=== PATIENT | male | born 1960 | race Caucasian/White ===

== ENCOUNTER 2018-05-17 20:41 | Inpatient (IN) | payer MEDICAID ==
--- NOTE | 2018-05-17 21:05 | ED Physician Chart ---
ED Chief Complaint/HPI - Patient Information Date Seen:: 05/17/18 Time Seen:: 20:59 Chief Complaint:: bleeding at the trach site History of Present Illness:: 57 yr old male who comes from assisted with trach with some bleeding issuesat the trach sitwe there was a clot at the trach site and when the assisted suctioned it it started to bleed more and then it stopped later on his own pt is coughing with yellowish phlegm and trach hole small with dry blood pulse ox 99 percent. Allergies:: Allergies Allergy/AdvReac Type Severity Reaction Status Date / Time No Known Allergies Allergy Verified 05/17/18 20:51 ED Review of Systems - Review of Systems General/Constitutional: No fever Skin: No skin lesions Head: No headache Eyes: No loss of vision ENT: No earache Neck: No neck pain Cardio Vascular: No chest pain Pulmonary: No SOB GI: No nausea, No vomiting G/U: No dysuria ED Past Medical History - Past Medical History Past Medical History: HTN, DM, Asthma/COPD, Thyroid disorder (hypokalcemia tonsillar laryngeal ca liver dz etoh former smoker ), Other (laryngeal ca s/p trach liver dz etoh hypokalemia ) Social History: Smoker Family Medical History - Family Member Mother History Unknown: Yes ED Physical Exam - Physical Examination General/Constitutional: Well-developed, well-nourished Head: Atraumatic Eyes: Lids, conjuctiva normal (trach hole with dry blood) ED Septic Shock - . Is Septic Shock (SBP<90, OR Lactate>4 mmol\L) present?: No ED Reassessment (Disposition) - Diagnosis Diagnosis:: larngeal ca hx with trach hole with fresh bleeding now controlled admit for observation of bleeding trach mask humidified ordered labs cxr - Patient Disposition Discharge/Transfer:: Acute Care w/in this hosp Condition at Disposition:: Stable
[2018-05-17] MEDS ORDERED: Morphine Sulfate 2 mg/mL 1mL Syr IV STA (21:12)
[2018-05-17] MEDS ORDERED: Sodium Chloride 0.9% 250 ML IV ONE (21:14)
[2018-05-17] MEDS ORDERED: Morphine Sulfate 2 mg/mL 1mL Syr ONE (21:22)
[2018-05-17 21:25] LABS: % BASOPHILS 0.7 % (0.0-2.0); % EOSINOPHILS 2.3 % (0.0-5.0); % MONOCYTES 9.2 % (2.0-10.0); % NEUTROPHILS 51.8 % (40.0-80.0); EOSINOPHILE ABSOLUTE 0.1 Th/cmm (0.1-0.4); HEMATOCRIT 37.4 % (41.0-60); HEMOGLOBIN 12.4 gm/dL (12-16); LYMPHOCYTE ABSOLUTE 2.1 Th/cmm (1.5-3.0); MEAN CELL VOLUME 91.2 fl (80-99); MEAN CORPUSCULAR HEMOGLOBIN 30.3 pg (26.0-30.0); MEAN CORPUSCULAR HGB CONC 33.2 pg (28.0-36.0); MEAN PLATELET VOLUME 8.9 fl; MONOCYTE ABSOLUTE 0.5 Th/cmm (0.3-1.0); NEUTROPHILE ABSOLUTE 3.2 Th/cmm (1.8-8.0); PLATELET COUNT 186 Th/cmm (150-400); RED CELL DISTRIBUTION WIDTH 14.1 % (11.5-20.0); WHITE BLOOD COUNT 5.9 Th/cmm (4.8-10.8)
[2018-05-17 21:28] LABS: URINE SOURCE CLEAN C
[2018-05-17 21:33] LABS: URINE BILIRUBIN NEGATIVE (NEGATIVE); URINE BLOOD NEGATIVE (NEGATIVE); URINE GLUCOSE (UA) NEGATIVE (NEGATIVE); URINE KETONE NEGATIVE (NEGATIVE); URINE LEUKOCYTE ESTERASE MODERATE (NEGATIVE); URINE NITRATE NEGATIVE (NEGATIVE); URINE PH 6.5 (4.6 - 8.0); URINE PROTEIN NEGATIVE (NEGATIVE); URINE UROBILINOGEN 0.2 E.U./dL (0.2 - 1.0)
[2018-05-17 21:34] LABS: URINE CLARITY HAZY (CLEAR); URINE COLOR YELLOW; URINE MICROSCOPIC INDICATED? YES
[2018-05-17 21:35] LABS: URINE RBC 0-2 /hpf (0-5)
[2018-05-17 21:36] LABS: URINE BACTERIA OCCASIONAL /hpf (NONE SEEN); URINE EPITHELIAL CELLS FEW /lpf (FEW)
[2018-05-17 21:44] LABS: ALB/GLOB RATIO 1.3 (1.0-1.8); ALBUMIN 4.6 gm/dL (4.2-5.5); ALKALINE PHOSPHATASE 90 U/L (34-104); BILIRUBIN,TOTAL 0.5 mg/dL (0.3-1.0); BUN - UREA NITROGEN 17 mg/dL (7-25); CALCIUM SERUM 9.7 mg/dL (8.6-10.3); CARBON DIOXIDE 27.8 mEq/L (21.0-31.0); CHLORIDE 101 mEq/L (98-107); GFR AFRICAN-AMERICAN > 60.0 ml/min (>90); GFR NON AFRICAN-AMERICAN > 60.0 ml/min; GLUCOSE 103 mg/dL (70-105); POTASSIUM SERUM 3.8 mEq/L (3.5-5.1); SGOT 22 U/L (13-39); SGPT/ALT 21 U/L (7-52); SODIUM SERUM 140 mEq/L (136-145); TOTAL PROTEIN,SERUM 8.2 gm/dL (6.0-8.3)
[2018-05-17] MEDS ORDERED: cefTRIAXone 2 GM in Sodium Chloride 0.9% 100 ML IV ONE (21:53)
[2018-05-17 23:41] LABS: INR 0.94 (0.5-1.4); PROTHROMBIN TIME (TEST) 9.5 SECONDS (9.5-11.5)
[2018-05-18 00:26] VITALS: BP 149/68
[2018-05-18] MEDS: Albuterol/Ipratropium Neb 3 ML AERS HHN SCH ×5 (01:22→18:45)
--- NOTE | 2018-05-18 08:33 | Diagnostic Imaging Report ---
Portable chest x-ray HISTORY: Shortness of breath There is a poor inspiration. Heart size difficult to assess. No acute focal pulmonary processes. No hilar or mediastinal abnormalities. IMPRESSION: 1. No acute abnormalities
[2018-05-18] MEDS ORDERED: Non-Formulary Item 1 EA (Levothyroxine Sodium [Levothyroxine Sodium] 150 MCG) PO SCH (09:30)
[2018-05-18] MEDS ORDERED: Influenza Vaccine (5 yr & older) 0.5 ml Syr IM ONE (10:00)
[2018-05-18 10:19] LABS: % BASOPHILS 0.7 % (0.0-2.0); % EOSINOPHILS 1.7 % (0.0-5.0); % LYMPHOCYTES 11.4 % (20.0-50.0); % MONOCYTES 9.6 % (2.0-10.0); % NEUTROPHILS 76.6 % (40.0-80.0); EOSINOPHILE ABSOLUTE 0.1 Th/cmm (0.1-0.4); HEMATOCRIT 33.6 % (41.0-60); HEMOGLOBIN 11.2 gm/dL (12-16); LYMPHOCYTE ABSOLUTE 0.7 Th/cmm (1.5-3.0); MEAN CELL VOLUME 91.4 fl (80-99); MEAN CORPUSCULAR HEMOGLOBIN 30.4 pg (26.0-30.0); MEAN CORPUSCULAR HGB CONC 33.2 pg (28.0-36.0); MEAN PLATELET VOLUME 9.3 fl; MONOCYTE ABSOLUTE 0.6 Th/cmm (0.3-1.0); NEUTROPHILE ABSOLUTE 4.5 Th/cmm (1.8-8.0); PLATELET COUNT 162 Th/cmm (150-400); RED BLOOD COUNT 3.68 Mil/cmm (4.30-5.70); RED CELL DISTRIBUTION WIDTH 14.1 % (11.5-20.0); WHITE BLOOD COUNT 5.9 Th/cmm (4.8-10.8)
[2018-05-18] MEDS: Hydrocodone/APAP 5mg/325mg Tab PO PRN ×2 (10:30→23:25)
[2018-05-18] MEDS: NIFEdipine 30 mg ER Tab PO SCH (10:31)
--- NOTE | 2018-05-18 10:46 | History & Physical ---
ADMIT DATE: 05/18/2018 PATIENT IDENTIFICATION: A 57-year-old male. CHIEF COMPLAINT: Bleeding from the stoma site. HISTORY OF PRESENT ILLNESS: A 57-year-old male who I know him from his last admission at [facility], resides at [facility], brought in to the Emergency Room for evaluation of bleeding from the stoma site. The patient was evaluated and advised to be admitted after the patient was having some respiratory distress. The patient currently is alert, awake and does not have any active bleeding. He does have stoma, but there is no tracheostomy. The patient has a diagnosis of cancer of his larynx and has a tracheostomy and get it is clear from [facility]. PAST MEDICAL HISTORY: Remarkable for diabetes, hypertension, history of laryngeal carcinoma. MEDICATIONS AT HOME: Medications at the time of transfer, the patient is taking multiple medications, which include Tylenol, albuterol, atrovent nebulizer treatment, calcitriol, Colace, guaifenesin, [place], levothyroxine, melatonin, nifedipine, and propylene glycol. ALLERGIES: The patient is not allergic to medications. SOCIAL HISTORY: The patient resides in a penitentiary. No history of smoking cigarette, alcohol, or drug use. FAMILY MEDICAL HISTORY: Remarkable for hypotension and diabetes. REVIEW OF SYSTEMS: The patient currently denies any headache, blurred vision, double vision, dysphagia, odynophagia, runny nose, stuffy nose, fever, chills, cough, chest pain, abdominal pain, nausea, vomiting, diarrhea, dysuria, hematuria, hematochezia, melena. No seizure or syncopal episode. PHYSICAL EXAMINATION: GENERAL: The patient is alert, awake, oriented, lying in the bed without any acute distress. VITAL SIGNS: Temperature 98, pulse is 74, respiratory rate is 18, blood pressure 136/80. SKIN: Warm to touch. Adequate skin turgor. No petechia, no purpura. HEENT: Normocephalic, atraumatic. Extraocular muscles are intact. Tongue was pink and coated. Poor dentition noted. NECK: Supple. Tracheostomy noted with active bleeding noted. No lymphadenopathy. HEART: Both heart sounds are regular. CHEST AND LUNGS: Equal in expansion. Expiratory wheezing noted. ABDOMEN: Soft. No guarding, no rigidity. Bowel sounds are present. No palpable mass. EXTREMITIES: No edema, no cyanosis, no calf tenderness noted. NEUROLOGIC: Nonfocal. AVAILABLE DIAGNOSTIC DATA: White count of 5.9, hemoglobin 12.4, platelet count of 186. PT, PTT are normal. Creatinine normal. Urine is unremarkable as well. CLINICAL IMPRESSION: 1. Status post bleeding from the stoma site, now has felt normal hemoglobin and hematocrit. 2. History of laryngeal carcinoma, status post tracheostomy. 3. Hypertension. 4. Hypothyroidism. 5. Degenerative joint disease. 6. Pain at the cancer site. PLAN: The patient is admitted at this time by me to the hospital. The patient was given oxygen, nebulizer treatment. Pulmonary consult is requested. Although, the home meds are reconciled. The patient is cleared by the Pulmonary. The patient will be discharged back to facility. I will get the followup CBC today. Symptoms management and pain management will be prescribed. Symptoms management and medication management given. JOB# [id number]
--- NOTE | 2018-05-18 15:35 | History & Physical ---
ADMIT DATE: 05/18/2018 PULMONARY/CRITICAL CARE CONSULTATION REASON FOR CONSULTATION: Helpless and shortness of breath with possibly hemoptysis or bleeding from the site of the stoma. CONSULT NOTE: This is a 57-year-old gentleman who is known to me from before. He was here one time before couple of months back. The patient has had history of very heavy smoking, quit smoking about a year ago when they were found to have a throat cancer ____ done. He is living in a local convalescent home. For the last couple of days, he has some off and on bloody colored secretions from coughing. Subsequently, got more shortness of breath, hence the patient was admitted for further care and necessary treatment. Denies any chest pain. Denied of any wheezing except for shortness of breath. Denied of any swelling of the legs, PND, orthopnea, etc. Denies of any sinus congestion and denies of swelling of the legs. PAST MEDICAL HISTORY: History of diabetes mellitus type 2, hypertension, and history of laryngeal carcinoma, probably a clean those stage is not clear. MEDICATIONS: Multiple including albuterol, Atrovent ground color for some [place], levothyroxine, melatonin, and nifedipine. ALLERGIC HISTORY: Nil. PHYSICAL EXAMINATION: GENERAL: This is a middle-aged looking gentleman, awake, alert, and oriented, not in acute distress. VITAL SIGNS: The patient's recorded vitals: Temperature is 97.2, blood pressure 125/71. HEENT: Head is essentially unremarkable. Pupils appear to be equal and reacting to light. Conjunctivae are slightly pallor. Oral cavity, small oropharyngeal opening with fair to poor dental hygiene, otherwise unremarkable. NECK: Stoma shows slight dryness affect appears to be fairly open and no palpable nodes around the stoma could be appreciated. CHEST: Shows occasional rhonchi with diminished air entry. HEART: Regular. ABDOMEN: Soft, nontender. EXTREMITIES: Shows no peripheral edema. LABORATORY DATA: The patient's routine labs white count is 75.9 on two occasions and hemoglobin is around 1-12 . Electrolytes are okay with the patient's creatinine 1.0 and the patient's glucose is 103 and urine appears to be having some leukocyte esterase positive. Chest x-ray shows increased bronchovascular marking, otherwise unremarkable. IMPRESSION: 1. The patient has hemoptysis, most likely secondary to tracheobronchitis. 2. Possibility of local recurrence cannot be totally rule out cancer. 3. History of diabetes mellitus. 4. Hypertension. PLAN: We will get a culture. I agree with empirical antibiotic. We will give limited dose of steroid inhaler and we will get a CT of the neck and the chest and if is not remarkable can be discharged and some of this can be followed up as an outpatient with a laryngectomy was done and go from there. JOB# [id number]
[2018-05-18] MEDS: Peg-400/Propylene Ophth Soln 5 mL Bottle EACH EYE SCH ×2 (15:59→20:32)
[2018-05-18] MEDS: guaiFENesin 200 MG/10 ML UDC PO SCH (16:04)
[2018-05-18] MEDS: Budesonide 0.5 Mg/2 mL Ud HHN SCH (18:45)
[2018-05-18] MEDS: cefTRIAXone 1 GM in Sodium Chloride 0.9% 50 ML IV SCH (20:32)
[2018-05-18] MEDS ORDERED: Non-Formulary Item 1 EA (Melatonin [Melatonin] 3 MG) PO SCH (21:00)
[2018-05-19 05:37] LABS: % BASOPHILS 0.7 % (0.0-2.0); % EOSINOPHILS 2.7 % (0.0-5.0); % NEUTROPHILS 60.6 % (40.0-80.0); EOSINOPHILE ABSOLUTE 0.1 Th/cmm (0.1-0.4); HEMOGLOBIN 10.8 gm/dL (12-16); LYMPHOCYTE ABSOLUTE 1.2 Th/cmm (1.5-3.0); MEAN CELL VOLUME 90.4 fl (80-99); MEAN CORPUSCULAR HEMOGLOBIN 30.3 pg (26.0-30.0); MEAN CORPUSCULAR HGB CONC 33.6 pg (28.0-36.0); MEAN PLATELET VOLUME 8.9 fl; MONOCYTE ABSOLUTE 0.7 Th/cmm (0.3-1.0); NEUTROPHILE ABSOLUTE 3.1 Th/cmm (1.8-8.0); PLATELET COUNT 161 Th/cmm (150-400); RED BLOOD COUNT 3.54 Mil/cmm (4.30-5.70); RED CELL DISTRIBUTION WIDTH 13.8 % (11.5-20.0); WHITE BLOOD COUNT 5.1 Th/cmm (4.8-10.8)
[2018-05-19 05:51] LABS: ALB/GLOB RATIO 1.3 (1.0-1.8); ALBUMIN 3.8 gm/dL (4.2-5.5); ALKALINE PHOSPHATASE 73 U/L (34-104); ANION GAP 13.2 (7.0-16.0); BILIRUBIN,DIRECT 0.04 mg/dL (0.0-0.2); BILIRUBIN,TOTAL 0.3 mg/dL (0.3-1.0); BUN - UREA NITROGEN 21 mg/dL (7-25); CALCIUM SERUM 8.7 mg/dL (8.6-10.3); CARBON DIOXIDE 26.1 mEq/L (21.0-31.0); CHLORIDE 104 mEq/L (98-107); GFR AFRICAN-AMERICAN > 60.0 ml/min (>90); GFR NON AFRICAN-AMERICAN > 60.0 ml/min; GLUCOSE 100 mg/dL (70-105); POTASSIUM SERUM 4.3 mEq/L (3.5-5.1); SGOT 15 U/L (13-39); SGPT/ALT 15 U/L (7-52); SODIUM SERUM 139 mEq/L (136-145); TOTAL PROTEIN,SERUM 6.8 gm/dL (6.0-8.3)
[2018-05-19] MEDS: Budesonide 0.5 Mg/2 mL Ud HHN SCH ×2 (07:26→19:27)
[2018-05-19] MEDS: Albuterol/Ipratropium Neb 3 ML AERS HHN SCH ×4 (07:37→19:28)
[2018-05-19] MEDS: guaiFENesin 200 MG/10 ML UDC PO SCH ×2 (08:20→16:34)
[2018-05-19] MEDS: Peg-400/Propylene Ophth Soln 5 mL Bottle EACH EYE SCH ×3 (08:21→20:25)
[2018-05-19] MEDS: NIFEdipine 30 mg ER Tab PO SCH (08:21)
[2018-05-19 08:59] LABS: pH 7.43 (7.35-7.45)
[2018-05-19 09:00] LABS: ALLEN TEST pos
--- NOTE | 2018-05-19 09:08 | Diagnostic Imaging Report ---
CT soft tissue neck without IV contrast History: Hemoptysis Comparison: None Technique: Axial images were obtained from the skull base to the upper thorax without IV contrast. Reconstructions were made. Total DLP 250 CTD I 9.1 Findings: Exam is limited due to lack of IV contrast. The globes and intraconal compartments are intact. The bilateral parotid glands are intact. Inflammatory changes are seen along the left parotid space extending inferiorly throughout the left submandibular space and extending to the right submandibular space. There are multiple prominent lymph nodes seen along the left, submandibular region. The largest of these is anterior without to what is probably the [place] left submandibular gland measuring 2.1 x 1.3 cm. The right submandibular gland is not visualized and may have been removed. There is a large fat density area/mass throughout the right parapharyngeal space extending from the oropharyngeal region and inferiorly to the upper mediastinum. This measures 10.5 cm greatest craniocaudal x 4.5 cm greatest transverse dimension. There is also partial removal involving the right and isthmus of the thyroid gland and parts of the left lobe. There is associated marked compression upon the airway and the proximal esophagus from the patient's fat density mass. A tracheostomy tube is seen inferior to the mass. No prevertebral soft tissue swelling. Mild degenerative changes of the spine are noted. There is mild atherosclerosis. There is mucosal thickening of the paranasal sinuses. IMPRESSION: Large fat density mass throughout the right parapharyngeal region extending from the oropharyngeal region superiorly to the upper mediastinal border. This is probably of postsurgical sequela. An intrinsic mass lesion such as a lipoma or low-grade liposarcoma is considered less likely. Please correlate with clinical and surgical history and old exams. There is associated compression of the proximal esophagus and trachea. A tracheostomy is noted distally. No tracheostomy tube identified. Again clinical correlation is needed. Heterogeneous inflammatory changes surrounding the left parotid gland extending inferior throughout the submandibular glands. Prominent lymph nodes of the submandibular regions are noted left greater than right. The right submandibular gland may also have been removed. Findings may have been sequela of previous neoplastic process/head and neck malignancy. Clinical correlation is recommended Evidence of removal of the majority of the thyroid gland with residual small amount of the left lobe of the thyroid gland. Atherosclerotic vascular disease.
--- NOTE | 2018-05-19 09:45 | Diagnostic Imaging Report ---
CT Chest without IV contrast HISTORY: Hemoptysis COMPARISON: CT chest on 06/14/2017. Study was also compared to day soft tissue neck CT Technique: Axial images were obtained from the base of the neck to the upper abdomen without IV contrast. Reconstructions were made. Total DLP 229, CTD I 6 Findings: Evaluation of the mediastinum is limited due to lack of IV contrast. Postsurgical be changes of the base of the neck is noted. There is evidence of prior tracheostomy. No evidence of mediastinal lymphadenopathy. The Ascending aorta measures up to 3.6 cm. Moderate atherosclerosis is noted. Heart size normal. No pericardial effusion identified. Evaluation of lung alexander demonstrates chronic lung changes and COPD changes. Hypoventilatory and atelectatic changes of the lungs are also noted. There is a new right apical nodule along the right medial right pleural border measuring 1.2 x 1.1 cm. There is mild elevation of the left hemidiaphragm. The previous few nodular infiltrates of the left lower lobe on prior exam are not seen on this examination. The upper abdomen demonstrates diffuse pancreatic parenchymal calcification likely due to chronic pancreatitis. Distended stomach is seen with air-fluid level. Again seen is there is chronic moderate compression deformity of T8. Degenerative changes spine are noted. There is stable 1.5 cm sclerotic lesion of T5. IMPRESSION: 1.2 x 1.1 cm New right apical nodule along the medial right pleural border. Neoplastic process cannot be excluded. Recommend further assessment with PET/CT examination The prior left basal infiltrate seen on prior CT examination on 06/14/2017 has resolved. Hypoventilatory and atelectatic lung changes with no focal consolidation identified. COPD changes. Moderate atherosclerosis. Stable 1.1 cm sclerotic lesion of T5. This may represent a bone island. Recommend continue follow up surveillance.
[2018-05-19] MEDS: Hydrocodone/APAP 5mg/325mg Tab PO PRN ×2 (14:33→20:25)
[2018-05-19] MEDS: cefTRIAXone 1 GM in Sodium Chloride 0.9% 50 ML IV SCH (20:26)
--- NOTE | 2018-05-19 23:19 | Progress Notes ---
DATE: IDENTIFICATION: A 57-year-old male. SUBJECTIVE: The patient seen and examined. The patient is lying in the bed. The patient had earlier respiratory distress. The patient is feeling much better now. The CT chest and soft tissue neck were done as well. Report reviewed with the patient. I did discuss with the patient that the patient should see the ENT surgeon as an outpatient since ENT service is not available. The patient currently agree with recommendations. The patient currently denies any chest pain or increasing shortness of breath. PHYSICAL EXAMINATION: VITAL SIGNS: Temperature 98.2, pulse 72, respiratory rate 18, and blood pressure 137/70. HEENT: No facial asymmetry. NECK: Supple, no JVD. Tracheostomy stoma noted with no active bleeding. HEART: Regular. LUNGS: Clear to auscultate. ABDOMEN: Soft. EXTREMITIES: No edema. LABORATORY DATA: MRSA nares positive. Blood cultures are negative. CLINICAL IMPRESSION: 1. Bleeding stoma. No further episode. 2. Status post tracheostomy with intact stoma for laryngeal cancer. 3. Respiratory distress, resolved. 4. Hypertension. 5. Hypothyroidism. 6. Pain at the catheter site, improved. PLAN: Based on current conditions and my evaluation, the patient can be discharged to lower level of care with current treatment plan as the patient receiving and have outpatient followup with [facility] ENT Department for his abnormal CT report and further evaluation. JOB# [id number]
[2018-05-20] MEDS: Budesonide 0.5 Mg/2 mL Ud HHN SCH (06:52)
[2018-05-20] MEDS: Albuterol/Ipratropium Neb 3 ML AERS HHN SCH ×2 (06:53→11:26)
[2018-05-20] MEDS: guaiFENesin 200 MG/10 ML UDC PO SCH (08:16)
[2018-05-20] MEDS: Peg-400/Propylene Ophth Soln 5 mL Bottle EACH EYE SCH (08:17)
[2018-05-20] MEDS: NIFEdipine 30 mg ER Tab PO SCH (08:22)
--- NOTE | 2018-05-20 19:58 | Discharge Summary ---
DATE OF DISCHARGE: 05/20/2018 PRINCIPAL DIAGNOSES: 1. Tracheostomy stoma site bleeding, most likely secondary to tracheobronchitis with possibilities of recurrence of tumor, workup to be done as an outpatient. 2. Hypertension. 3. Hypothyroidism. 4. Coronary artery disease. 5. Chronic obstructive pulmonary disease. 6. Degenerative joint disease. 7. Status post resection of laryngeal carcinoma with open tracheostomy stoma. BRIEF STATEMENT FOR THE REASON FOR ADMISSION: A 57-year-old male presented to [facility] after the patient was having bleeding from the tracheostomy stoma site. The patient was evaluated and subsequently admitted to the hospital for further treatment. Please refer to my H and P for further information. HOSPITAL COURSE: The patient was admitted to telemetry unit. Oxygen nebulizer treatment given. Empirical IV antibiotic was started. Pulmonary consultation was also requested. The patient was seen by grades [address] chest and soft tissue neck was also done. CT chest was remarkable for COPD with atherosclerosis. No lymphadenopathy was noted. CT scan of the soft tissue did reveal the patient had a heterogenous inflammatory changes surrounding the left parotid gland extending inferior throughout the submandibular gland also noted. There is associated compression of the proximal esophagus and trachea also noted. There is a large fatty density mass throughout the right pharyngeal region extending from the oropharyngeal region superior to the upper mediastinal border was noted as well. It was recommended that to correlate with clinical and surgical history. The patient did not have any further bleeding after the patient was placed on inhaled corticosteroid and antibiotic. The patient has continued to remain hemodynamically stable with saturation of about 95%. Since the patient remained stable, no active bleeding. I did have a discussion with the patient about follow up with I for his abnormal CT scan of the neck, considering ENT service is not available and there is no need to transfer this patient on an emergency basis. The patient has fully understood about follow up with I. Today, the patient is [facility] to [facility] with antibiotic, Zithromax to be continued for 1 week, associated with inhaled corticosteroid and other medication. The patient will be seen by his manager primary in [facility] as scheduled. JOB# [id number]
--- NOTE | 2018-05-21 03:35 | Progress Notes ---
DATE: 05/20/2018 IDENTIFICATION: A 57-year-old male. SUBJECTIVE: The patient is seen and examined. No new complaints. PHYSICAL EXAMINATION: VITAL SIGNS: Temperature 97.7, pulse is 90, respiratory rate 18, blood pressure 106/76. HEENT: No facial asymmetry. NECK: Supple. Tracheostomy stoma without any active bleeding noted. HEART: Regular. LUNGS: Expiratory wheezing. ABDOMEN: Soft. No guarding, no rigidity. Bowel sounds present. No palpable mass. EXTREMITIES: No edema. NEUROLOGIC: Nonfocal. MEDICATION: Admission record is reviewed. CLINICAL IMPRESSION: 1. Hemoptysis, resolved, most likely secondary to tracheobronchitis with possible recurrence of tumor workup to be done as an outpatient for the tumor. 2. Hypertension. 3. Degenerative joint disease. 4. Hypothyroidism. 5. History of laryngeal cancer. 6. Status post surgery for laryngeal cancer with tracheostomy stoma. PLAN: Discharged to senior care with antibiotic inhaled corticosteroid with other medication as patient receiving. Discussed with the patient about getting followup with [facility] for his cancer and abnormal CT scan. JOB# [id number]
== END 2018-05-20 13:00 | DRG 143 ==
LOC: ER 20:41 → TELE 23:10
PROVIDERS: ADMIT Internal Medicine; ATTEND Internal Medicine
DX: J95.01 Hemorrhage from tracheostomy stoma (principal); E03.9 Hypothyroidism, unspecified; Y83.8 Other surgical procedures as the cause of abnormal reaction of the patient, or of later complication, without mention of misadventure at the time of the procedure; Y92.89 Other specified places as the place of occurrence of the external cause; I10 Essential (primary) hypertension; M19.90 Unspecified osteoarthritis, unspecified site; R06.03 Acute respiratory distress; E11.9 Type 2 diabetes mellitus without complications; J44.9 Chronic obstructive pulmonary disease, unspecified; Z87.891 Personal history of nicotine dependence; Z85.21 Personal history of malignant neoplasm of larynx
CPT/HCPCS: 36415-UA; 36600-90; 70490-TC; 71045-TC; 71250-TC; 80053-TC; 81001-TC; 82248-TC; 82803-TC; 85025-TC; 85610-TC; 87070; 94640; 94760; 96375; 96379; J0696; J2270; Z7610

== ENCOUNTER 2018-12-01 02:58 | Emergency (ER) | payer MEDICAID ==
--- NOTE | 2018-12-01 03:24 | ED Physician Chart ---
ED Chief Complaint/HPI - Patient Information Date Seen:: 12/01/18 Time Seen:: 03:21 Chief Complaint:: Forehead laceration History of Present Illness:: 57 yo male resident at [facility] with history of laryngeal cancer s/p tumor removal, neck dissection and neck reconstruction surgery, tracheostomy status, hypothyroidism was discharged from [facility] on 11/28/18 due to fever with unknown origin and hypocalcemia related to parathyroid issue. Pt was discharged to facility with IV zosyn for 4 days. Around 11pm this evening , pt had dizziness and possible syncope while walking in his room, he had an unwitnessed fall which caused abrasion and superficial laceration of his forehead. Steristrips were applied to stop the bleeding. Pt was then brought to [facility] ER. On arrival, pt complained headache. Pt is a poor historian because of nonverbal due to laryngeal surgery. Pt is not on any anticoagulant or antiplatelet. Allergies:: Allergies Allergy/AdvReac Type Severity Reaction Status Date / Time No Known Allergies Allergy Verified 05/17/18 20:51 ED Review of Systems - Review of Systems General/Constitutional: Fever Skin: Skin lesions Head: Headache Eyes: No pain ENT: No nasal drainage Neck: No neck pain, No thyromegaly Pulmonary: No SOB GI: No nausea, No vomiting Musculoskeletal: No bone or joint pain Neurological: Syncope ED Past Medical History - Past Medical History Past Medical History: Thyroid disorder (Hypothyroidism), Other (Hypothyroidism, hypoparathyroidism, hypocalcemia) Social History: Non Smoker, Alcohol (Occasional), No Drug Use Surgical History: other (Thyroidectomy, parathyroidectomy, neck reconstruction, tracheostomy ) Family Medical History - Family Member Mother History Unknown: Yes ED Physical Exam - Physical Examination General/Constitutional: Awake, Alert Other Head comments:: Forehead 3 abrasions/superficial lacerations, one nose laceration. Eyes: PERRL Skin: No ecchymosis ENMT: Nasal exam nl Neck: No nuchal rigidity Respiratory: No Wheeze/Rhonchi/Rales Cardio Vascular: RRR, No murmur, gallop, rubs, NL S1 S2 GI: No tenderness/rebounding/guarding Extremities: normal strength in all extremities Neuro/Psych: No focal deficits ED Labs/Radiology/EKG Results - Lab Results Results: Laboratory Last Values WBC 5.9 Th/cmm (4.8-10.8) 12/01/18 04:15 RBC 3.82 Mil/cmm (4.30-5.70) L 12/01/18 04:15 Hgb 12.3 gm/dL (12-16) 12/01/18 04:15 Hct 38.3 % (41.0-60) L 12/01/18 04:15 MCV 100.3 fl (80-99) H 12/01/18 04:15 MCH 32.2 pg (26.0-30.0) H 12/01/18 04:15 MCHC Differential 32.1 pg (28.0-36.0) 12/01/18 04:15 RDW 15.0 % (11.5-20.0) 12/01/18 04:15 Plt Count 264 Th/cmm (150-400) 12/01/18 04:15 MPV 6.9 fl 12/01/18 04:15 Neutrophils % 48.1 % (40.0-80.0) 12/01/18 04:15 Lymphocytes % 32.9 % (20.0-50.0) 12/01/18 04:15 Monocytes % 15.0 % (2.0-10.0) H 12/01/18 04:15 Eosinophils % 2.7 % (0.0-5.0) 12/01/18 04:15 Basophils % 1.3 % (0.0-2.0) 12/01/18 04:15 PT 9.4 SECONDS (9.5-11.5) L 12/01/18 04:15 INR 0.90 (0.5-1.4) 12/01/18 04:15 PTT (Actin FS) 27.7 SECONDS (26.0-38.0) 12/01/18 04:15 Sodium 140 mEq/L (136-145) 12/01/18 04:15 Potassium 3.8 mEq/L (3.5-5.1) 12/01/18 04:15 Chloride 101 mEq/L (98-107) 12/01/18 04:15 Carbon Dioxide 25.9 mEq/L (21.0-31.0) 12/01/18 04:15 Anion Gap 16.9 (7.0-16.0) H 12/01/18 04:15 BUN 11 mg/dL (7-25) 12/01/18 04:15 Creatinine 0.9 mg/dL (0.7-1.3) 12/01/18 04:15 Est GFR ( Amer) > 60.0 ml/min (>90) 12/01/18 04:15 Est GFR (Non-Af Amer) > 60.0 ml/min 12/01/18 04:15 BUN/Creatinine Ratio 12.2 12/01/18 04:15 Glucose 98 mg/dL (70-105) 12/01/18 04:15 Calcium 9.6 mg/dL (8.6-10.3) 12/01/18 04:15 Phosphorus 3.5 mg/dL (2.5-5.0) 12/01/18 04:15 Total Bilirubin 0.3 mg/dL (0.3-1.0) 12/01/18 04:15 AST 31 U/L (13-39) 12/01/18 04:15 ALT 16 U/L (7-52) 12/01/18 04:15 Alkaline Phosphatase 78 U/L (34-104) 12/01/18 04:15 Troponin I < 0.01 ng/mL (0.01-0.05) L 12/01/18 04:15 B-Natriuretic Peptide 20.0 pg/mL (5.0-100.0) 12/01/18 04:15 Total Protein 7.4 gm/dL (6.0-8.3) 12/01/18 04:15 Albumin 4.1 gm/dL (4.2-5.5) L 12/01/18 04:15 Globulin 3.3 gm/dL 12/01/18 04:15 Albumin/Globulin Ratio 1.2 (1.0-1.8) 12/01/18 04:15 TSH 35.80 uIU/ml (0.34-5.60) H 12/01/18 04:15 Urine Source MIDSTREAM 12/01/18 06:05 Urine Color YELLOW 12/01/18 06:05 Urine Clarity CLEAR (CLEAR) 12/01/18 06:05 Urine pH 6.0 (4.6 - 8.0) 12/01/18 06:05 Ur Specific [place] <= 1.005 (1.005-1.030) 12/01/18 06:05 Urine Protein NEGATIVE mg/dL (NEGATIVE) 12/01/18 06:05 Urine Glucose (UA) NEGATIVE mg/dL (NEGATIVE) 12/01/18 06:05 Urine Ketones NEGATIVE mg/dL (NEGATIVE) 12/01/18 06:05 Urine Blood NEGATIVE (NEGATIVE) 12/01/18 06:05 Urine Nitrate NEGATIVE (NEGATIVE) 12/01/18 06:05 Urine Bilirubin NEGATIVE (NEGATIVE) 12/01/18 06:05 Urine Urobilinogen 0.2 E.U./dL (0.2 - 1.0) 12/01/18 06:05 Ur Leukocyte Esterase NEGATIVE (NEGATIVE) 12/01/18 06:05 Urine RBC 0-2 /hpf (0-5) H 12/01/18 06:05 Urine WBC 0-2 /hpf (0-5) 12/01/18 06:05 Ur Epithelial Cells NONE SEEN /lpf (FEW) 12/01/18 06:05 Urine Bacteria FEW /hpf (NONE SEEN) 12/01/18 06:05 - Radiology Results Results: CT head wo contrast: no acute intracranial hemorrhage, infarct or mass effect. - EKG Interpretations EKG Time:: 04:03 Rate & Rhythm: 75 bpm, sinus rhythm [place]: normal axis Intervals: normal intervals ED Assessment - Assessment General Assessment: Head trauma, s/p fall Dizziness/near syncope Skin abrasions Hypocalcemia Hypothyroidism Hypoparathyroidism History of laryngeal cancer, s/p tumor removal, neck reconstruction Assessment/Comments:: CBC, CMP, PT/PTT, TSH, PTH CT head wo contrast CXR EKG Tylenol 650 mg po NS 1L IV bolus - Procedures Procedures:: Clean the wound with saline, hydrogen peroxide and betadine. Applied Dermabond on the abrasions. ED Septic Shock - . Is Septic Shock (SBP<90, OR Lactate>4 mmol\L) present?: No ED Reassessment (Disposition) - Reassessment Reassessment Condition:: Improved - Aftercare/Follow up Instructions Notes:: D/c to SNF Continue zosyn IV F/u PCP - Patient Disposition Discharge/Transfer:: [facility] - [facility]
[2018-12-01 04:30] LABS: BASOPHILE ABSOLUTE 0.1 Th/cumm (0-0.2); EOSINOPHILE ABSOLUTE 0.2 Th/cmm (0.1-0.4); HEMATOCRIT 38.3 % (41.0-60); HEMOGLOBIN 12.3 gm/dL (12-16); LYMPHOCYTE ABSOLUTE 1.9 Th/cmm (1.5-3.0); MEAN CELL VOLUME 100.3 fl (80-99); MEAN CORPUSCULAR HEMOGLOBIN 32.2 pg (26.0-30.0); MEAN CORPUSCULAR HGB CONC 32.1 pg (28.0-36.0); MEAN PLATELET VOLUME 6.9 fl; MONOCYTE ABSOLUTE 0.9 Th/cmm (0.3-1.0); NEUTROPHILE ABSOLUTE 2.8 Th/cmm (1.8-8.0); PLATELET COUNT 264 Th/cmm (150-400); RED BLOOD COUNT 3.82 Mil/cmm (4.30-5.70); WHITE BLOOD COUNT 5.9 Th/cmm (4.8-10.8)
[2018-12-01 04:32] LABS: % BASOPHILS 1.3 % (0.0-2.0); % EOSINOPHILS 2.7 % (0.0-5.0); % LYMPHOCYTES 32.9 % (20.0-50.0); % NEUTROPHILS 48.1 % (40.0-80.0)
[2018-12-01 04:37] LABS: INR 0.9 (0.5-1.4); PROTHROMBIN TIME (TEST) 9.4 SECONDS (9.5-11.5)
[2018-12-01 05:27] LABS: ALB/GLOB RATIO 1.2 (1.0-1.8); ALBUMIN 4.1 gm/dL (4.2-5.5); ALKALINE PHOSPHATASE 78 U/L (34-104); ANION GAP 16.9 (7.0-16.0); BILIRUBIN,TOTAL 0.3 mg/dL (0.3-1.0); BUN - UREA NITROGEN 11 mg/dL (7-25); CALCIUM SERUM 9.6 mg/dL (8.6-10.3); CARBON DIOXIDE 25.9 mEq/L (21.0-31.0); CHLORIDE 101 mEq/L (98-107); CREATININE - SERUM 0.9 mg/dL (0.7-1.3); GFR AFRICAN-AMERICAN > 60.0 ml/min (>90); GFR NON AFRICAN-AMERICAN > 60.0 ml/min; GLUCOSE 98 mg/dL (70-105); PHOSPHOROUS 3.5 mg/dL (2.5-5.0); POTASSIUM SERUM 3.8 mEq/L (3.5-5.1); SGOT 31 U/L (13-39); SGPT/ALT 16 U/L (7-52); SODIUM SERUM 140 mEq/L (136-145); TOTAL PROTEIN,SERUM 7.4 gm/dL (6.0-8.3)
[2018-12-01 06:11] LABS: URINE SOURCE MIDSTREAM
[2018-12-01 06:13] LABS: URINE BILIRUBIN NEGATIVE (NEGATIVE); URINE BLOOD NEGATIVE (NEGATIVE); URINE GLUCOSE (UA) NEGATIVE (NEGATIVE); URINE KETONE NEGATIVE (NEGATIVE); URINE LEUKOCYTE ESTERASE NEGATIVE (NEGATIVE); URINE NITRATE NEGATIVE (NEGATIVE); URINE PROTEIN NEGATIVE (NEGATIVE); URINE UROBILINOGEN 0.2 E.U./dL (0.2 - 1.0)
[2018-12-01 06:24] LABS: URINE COLOR YELLOW
[2018-12-01 06:25] LABS: URINE BACTERIA FEW /hpf (NONE SEEN); URINE CLARITY CLEAR (CLEAR); URINE EPITHELIAL CELLS NONE SEEN /lpf (FEW); URINE MICROSCOPIC INDICATED? YES; URINE WBC 0-2 /hpf (0-5)
[2018-12-01 06:26] LABS: URINE RBC 0-2 /hpf (0-5)
[2018-12-01] MEDS: Sodium Chloride 0.9% 1,000 ML IV ONE (06:36)
--- NOTE | 2018-12-01 08:35 | Diagnostic Imaging Report ---
CHEST X-RAY: AP view INDICATION: Shortness of breath COMPARISON: Chest CT on 05/18/2019 and chest x-ray 05/17/2018 FINDINGS: Chronic lung changes are seen. No focal consolidation or pleural effusions. There is faint 8 mm density projecting along the anterior aspect of the right fourth rib. This may correspond density seen on previous CT examination. Heart size is normal. IMPRESSION: No focal consolidation identified. Faint 8 mm density rejecting along the anterior aspect of the right fourth rib. This may correspond to faint density along the pleural seen on previous CT of the chest on 05/18/2018. Findings may be due to scarring however infectious/inflammatory or neoplastic process cannot be completely excluded and clinical correlation and short-term follow-up surveillance including CT may be obtained for further assessment/monitoring.
--- NOTE | 2018-12-01 09:07 | Diagnostic Imaging Report ---
Head CT without intravenous contrast Indication: Trauma Comparison: Head CT on 06/14/2017 Technique: Axial images were obtained from the vertex to the skull base without IV contrast. Coronal reconstructions were made. Total DLP: [id number], [id number] FINDINGS: Images of the brain obtained without contrast demonstrate no evidence of an acute hemorrhage. Atrophy is noted. Mild white matter disease is noted. 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 The ventricles and basal cisterns are patent. No mass effect or midline shift. There is soft tissue swelling along the forehead region. No skull fracture There is mucosal thickening in the paranasal sinuses. Atherosclerosis is noted. IMPRESSION: No evidence of an acute intracranial hemorrhage. Soft tissue swelling of the forehead is noted. No skull fracture identified. Atrophy. Mild supratentorial white matter disease which is nonspecific and may be due to chronic microvessel ischemia. 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 Atherosclerotic vascular disease.
== END 2018-12-01 10:03 | disposition short-term general hospital (02) ==
LOC: ER 02:58
DX: S01.81XA Laceration without foreign body of other part of head, initial encounter (principal); E83.51 Hypocalcemia; E03.9 Hypothyroidism, unspecified; Z85.21 Personal history of malignant neoplasm of larynx; W18.39XA Other fall on same level, initial encounter; Y93.89 Activity, other specified; Y92.89 Other specified places as the place of occurrence of the external cause; Y99.8 Other external cause status
CPT/HCPCS: 12011; 36415-UA; 70450-TC; 71045-TC; 80053-TC; 81001-TC; 83880-TC; 83970-90; 84100-TC; 84443-TC; 84484-TC; 85025-TC; 85610-TC; 93005; J7030; Z7610